=== PATIENT | male | born 1970 | race Caucasian/White ===

== ENCOUNTER 2017-05-26 11:29 | Outpatient (RCR) | payer OTHER | END 2017-06-08 13:33 | disposition home or self-care (01) | LOC: WSOH 11:29 | DX: S46.011A Strain of muscle(s) and tendon(s) of the rotator cuff of right shoulder, initial encounter (principal); X50.0XXA Overexertion from strenuous movement or load, initial encounter; Y99.0 Civilian activity done for income or pay; Z79.84 Long term (current) use of oral hypoglycemic drugs ==

== ENCOUNTER → 2017-11-11 | Outpatient (RCR) | payer OTHER | END | disposition home or self-care (01) | LOC: WSPT | DX: Z47.89 Encounter for other orthopedic aftercare (principal) | CPT/HCPCS: G0283-GP ==

== ENCOUNTER 2018-01-19 15:45 | Outpatient (RCR) | payer OTHER | END 2018-01-19 16:00 | disposition home or self-care (01) | LOC: WSPT 15:45 | DX: Z47.89 Encounter for other orthopedic aftercare (principal) | CPT/HCPCS: G0283-GP ==